=== PATIENT | female | born 1960 | race Caucasian/White ===

== ENCOUNTER 2020-11-01 21:23 | Emergency (ER) | payer OTHER ==
[~2020-11-01] VITALS: Ht 152.4 cm; Wt 129.3 kg
[2020-11-01 22:06] LABS: ABSOLUTE LYMPHOCYTES 0.7 thou/uL (0.8-5.3); ABSOLUTE MONOCYTES 0.4 thou/uL (0.0-1.2); ABSOLUTE NEUTROPHILS 3.6 thou/uL (1.6-8.1); EOSINOPHILS 0.3 %; HEMATOCRIT 38.3 % (37.0-47.0); HEMOGLOBIN 12.5 gm/dL (12.0-15.0); MCH 27.5 pg (26.0-34.0); MCHC 32.5 g/dL (28.0-37.0); MCV 84.5 fL (80.0-100.0); MPV 10.6 fl. (7.2-11.1); NUCLEATED RBCS 0 /100WBC; PLATELET COUNT* 118 thou/uL (150-400); POLYS 74.7 %; RBC 4.53 mil/uL (4.20-5.00); RDW-CV 14.9 % (10.5-14.5); WBC 4.8 thou/uL (4.0-11.0)
[2020-11-01 22:15] LABS: APTT 25.5 Seconds (25.0-31.3); INR 0.9; PROTIME 10.1 Seconds (9.20-11.50)
[2020-11-01 22:25] LABS: ALBUMIN 3.1 g/dL (3.4-5.0); CALCIUM 8.8 mg/dL (8.5-10.1); POTASSIUM 3.8 mmol/L (3.5-5.1); TOTAL BILIRUBIN 0.6 mg/dL (<0.1-1.0); TOTAL PROTEIN 6.9 g/dL (6.4-8.2)
[2020-11-01] MEDS ORDERED: AZITHROMYCIN 2250 MG PO (22:54)
[2020-11-01] MEDS ORDERED: VENTOLIN HFA 1818 GM INH (22:54)
[2020-11-01] MEDS ORDERED: DEXAMETHASONE 44 M1 PO (22:54)
[2020-11-01 23:14] VITALS: BP 124/73
--- NOTE | 2020-11-02 14:17 | EKG ---
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 : 1960 Requested By: Rohith Cardona Order Number: [id number] MD: Luiz Johnson Measurements Intervals [place] Rate: 89 P: 60 HI: 156 QRS: 15 QRSD: 89 T: 41 QT: 342 QTc: 417 Interpretive Statements Sinus rhythm Baseline wander in lead(s) V2 No previous ECG available for comparison Electronically Signed On 11-02-2020 14:17:02 [employer]TER [employer] by Luiz Johnson [email or web address] <ELECTRONICALLY SIGNED> By: Luiz Johnson MD, [facility] 11/02/20 1417 35 Luiz Johnson MD, [facility] /EPI
== END 2020-11-01 23:14 | disposition home or self-care (01) ==
LOC: M.ERS 21:23
PROVIDERS: Family Medicine
DX: J18.9 Pneumonia, unspecified organism (principal); Z20.822 Contact with and (suspected) exposure to COVID-19

== ENCOUNTER 2020-11-07 13:19 | Inpatient (IN) | payer OTHER ==
[~2020-11-07] VITALS: Ht 152.4 cm; Wt 127.9 kg
--- NOTE | ~2020-11-07 | PROC ---
[address] [address] PROCEDURE REPORT Name: HEBERT SMITH Room: [address] IN M.R.#: [id number] Admission: 11/07/20 Attend Phys: Devorah Mayorga MD Discharge: 11/11/20 Date of : 60 Report #: [id number] THIS REPORT FOR: cc: Genesis Mcknight Angela Jo RNP ~ [facility],Medical Records Staff For GI report, please see the Provation report in Perceptive 7 content. By: [id number] Records Staff [facility] /EZE
[~2020-11-07 13:19] MED LIST: AZITHROMYCIN 2250 MG PO; DEXAMETHASONE 44 M1 PO; VENTOLIN HFA 1818 GM INH
[2020-11-07 13:24] VITALS: BP 207/87
[2020-11-07] MEDS ORDERED: PEPCID20 MG PO (13:27)
[2020-11-07 13:40] LABS: URINE BILIRUBIN NEGATIVE (Negative); URINE BLOOD NEGATIVE (Negative); URINE COLOR YELLOW; URINE GLUCOSE-RANDOM NEGATIVE (Negative); URINE KETONES NEGATIVE (Negative); URINE LEUKOCYTES-REFLEX TRACE (Negative); URINE NITRITE-REFLEX NEGATIVE (Negative); URINE PROTEIN 1+ (Negative); URINE SPECIFIC GRAVITY >= 1.030 (1.005-1.030); URINE UROBILINOGEN 0.2 E.U./dl (0.2-1.0)
[2020-11-07 13:41] LABS: URINE CLARITY HAZY
[2020-11-07 13:45] LABS: BACTERIA-REFLEX 1-9 Few /HPF (None Seen); CASTS None Seen /LPF (None Seen); CRYSTALS None Seen /LPF (None Seen); MUCUS >6 Heavy strn/LPF (None Seen); SQUAMOUS 4-10 Moderate /LPF (0-3); URINE RBC None Seen /HPF (0-2); URINE WBC-REFLEX 6-15 Few /HPF (0-5)
[2020-11-07 14:07] LABS: HEMOGLOBIN 13.9 gm/dL (12.0-15.0); MCH 27.3 pg (26.0-34.0); MCHC 32.3 g/dL (28.0-37.0); MCV 84.3 fL (80.0-100.0); MPV 10.5 fl. (7.2-11.1); NUCLEATED RBCS 0 /100WBC; PLATELET COUNT* 211 thou/uL (150-400); RDW-CV 14.9 % (10.5-14.5); WBC 11.8 thou/uL (4.0-11.0)
[2020-11-07 14:10] LABS: CALCIUM 7.5 mg/dL (8.5-10.1); CREATININE 0.9 mg/dL (0.6-1.3)
[2020-11-07 14:15] LABS: ALBUMIN 3.1 g/dL (3.4-5.0); TOTAL BILIRUBIN 0.6 mg/dL (<0.1-1.0); TOTAL PROTEIN 6.5 g/dL (6.4-8.2)
[2020-11-07 14:53] LABS: AMP/METHAMP Negative (Negative); BARBITURATES Negative (Negative); BENZODIAZEPINES Negative (Negative); COCAINE Negative (Negative); METHADONE Negative (Negative); OPIATES Negative (Negative); PCP Negative (Negative); THC Negative (Negative)
[2020-11-07 15:11] LABS: ABSOLUTE LYMPHOCYTES 0.9 thou/uL (0.8-5.3); ABSOLUTE MONOCYTES 0.2 thou/uL (0.0-1.2); ABSOLUTE NEUTROPHILS 10.6 thou/uL (1.6-8.1)
[2020-11-07 15:12] LABS: PLATELET ESTIMATE ADEQUATE
--- NOTE | 2020-11-07 15:50 | EKG ---
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: [facility] : 1960 Requested By: Ines Sethi Order Number: [id number] MD: Tom Borja Measurements Intervals [place] Rate: 67 P: 71 SD: 180 QRS: 14 QRSD: 98 T: 54 QT: 397 QTc: 419 Interpretive Statements Sinus rhythm Compared to ECG 11/01/2020 21:36:23 ST segment changes less prominent Electronically Signed On 11-07-2020 15:50:07 HOME DEMONSTRATOR by Tom Borja [email or web address] <ELECTRONICALLY SIGNED> By: Tom Borja MD, [facility] 11/07/20 2770 1338 1338 Tom Borja MD, [facility] /EPI
[2020-11-07 17:57] VITALS: BP 174/75
[2020-11-07 20:00] VITALS: BP 145/77
[2020-11-08 05:08] LABS: ABSOLUTE EOSINOPHILS 0.1 thou/uL (0.0-0.7); ABSOLUTE LYMPHOCYTES 1.1 thou/uL (0.8-5.3); ABSOLUTE MONOCYTES 0.8 thou/uL (0.0-1.2); BASOPHILS 0.1 %; EOSINOPHILS 0.4 %; HEMATOCRIT 40.5 % (37.0-47.0); HEMOGLOBIN 12.8 gm/dL (12.0-15.0); LYMPHOCYTES 7.5 %; MCH 26.8 pg (26.0-34.0); MCHC 31.6 g/dL (28.0-37.0); MCV 84.7 fL (80.0-100.0); MONOCYTES 5.5 %; MPV 10.4 fl. (7.2-11.1); NUCLEATED RBCS 0 /100WBC; PLATELET COUNT* 192 thou/uL (150-400); POLYS 86.5 %; RBC 4.78 mil/uL (4.20-5.00); RDW-CV 15.2 % (10.5-14.5)
[2020-11-08 05:27] VITALS: BP 170/76
[2020-11-08 05:48] LABS: ALBUMIN 2.9 g/dL (3.4-5.0); CALCIUM 7.5 mg/dL (8.5-10.1); CREATININE 0.8 mg/dL (0.6-1.3); POTASSIUM 3.5 mmol/L (3.5-5.1); TOTAL BILIRUBIN 0.5 mg/dL (<0.1-1.0); TOTAL PROTEIN 6.2 g/dL (6.4-8.2)
[2020-11-08 08:00] VITALS: BP 179/80
[2020-11-08 12:54] VITALS: BP 178/84
[2020-11-08 20:15] VITALS: BP 143/76
[2020-11-09 04:44] VITALS: BP 153/77
[2020-11-09 07:46] LABS: ABSOLUTE EOSINOPHILS 0.1 thou/uL (0.0-0.7); EOSINOPHILS 0.6 %
[2020-11-09 07:48] LABS: ABSOLUTE BASOPHILS 0.2 thou/uL (0.0-0.2); ABSOLUTE MONOCYTES 1.4 thou/uL (0.0-1.2); ABSOLUTE NEUTROPHILS 18.4 thou/uL (1.6-8.1); HEMATOCRIT 37.3 % (37.0-47.0); LYMPHOCYTES 4.8 %; MCH 27.2 pg (26.0-34.0); MCHC 32.1 g/dL (28.0-37.0); MCV 84.8 fL (80.0-100.0); MONOCYTES 6.4 %; MPV 10.2 fl. (7.2-11.1); NUCLEATED RBCS 0 /100WBC; PLATELET COUNT* 200 thou/uL (150-400); POLYS 87.2 %; RDW-CV 15.3 % (10.5-14.5); WBC 21.1 thou/uL (4.0-11.0)
[2020-11-09 07:55] LABS: ALBUMIN 2.4 g/dL (3.4-5.0); CALCIUM 7.9 mg/dL (8.5-10.1); CREATININE 0.7 mg/dL (0.6-1.3); POTASSIUM 3.8 mmol/L (3.5-5.1); TOTAL BILIRUBIN 0.8 mg/dL (<0.1-1.0)
[2020-11-09 08:07] VITALS: BP 155/76
[2020-11-09 20:15] VITALS: BP 128/59
[2020-11-09 23:37] VITALS: BP 131/76
[2020-11-10 00:22] VITALS: BP 131/76
[2020-11-10 04:00] VITALS: BP 103/60
[2020-11-10 04:13] LABS: HEMATOCRIT 34.6 % (37.0-47.0); HEMOGLOBIN 11.2 gm/dL (12.0-15.0); MCH 27.3 pg (26.0-34.0); MCHC 32.4 g/dL (28.0-37.0); MCV 84.3 fL (80.0-100.0); MPV 10.3 fl. (7.2-11.1); RBC 4.11 mil/uL (4.20-5.00); RDW-CV 14.7 % (10.5-14.5); WBC 16.8 thou/uL (4.0-11.0)
[2020-11-10 04:35] LABS: CALCIUM 8.9 mg/dL (8.5-10.1); CREATININE 0.8 mg/dL (0.6-1.3); MAGNESIUM 2.2 mg/dL (1.8-2.4); TOTAL BILIRUBIN 0.9 mg/dL (<0.1-1.0); TOTAL PROTEIN 5.9 g/dL (6.4-8.2)
[2020-11-10 07:48] VITALS: BP 135/87
--- NOTE | 2020-11-10 18:42 | OP ---
[facility] [address] [place] [address] OPERATIVE REPORT Name: HEBERT SMITH Room: [address] IN .R.#: [id number] Admission: 11/07/20 Attend Phys: Devorah Mayorga MD Discharge: Date of : 60 Report #: [id number] THIS REPORT FOR: cc: Genesis Mcknight Angela Jo RNP ~ Gazzetta, Joshua D. DO DICTATED BY: José Koehler DO DATE OF SERVICE: 11/09/2020 PREOPERATIVE DIAGNOSES: Acute cholecystitis and transaminitis. POSTOPERATIVE DIAGNOSES: Acute cholecystitis and choledocholithiasis. PROCEDURE PERFORMED: Laparoscopic cholecystectomy with intraoperative cholangiogram. SURGEON: Elie Cook DO CO-SURGEON: José Koehler DO, PGY-4. OSTEOPATHIC MEDICINE TEACHER: KATHERINE Gutierrez. ANESTHESIA: General and regional. ESTIMATED BLOOD LOSS: 10 mL. SPECIMEN: Gallbladder. FINDINGS: Thickened gallbladder wall consistent with cholecystitis. Intraoperative cholangiogram findings of dilated common bile duct with no flow into the duodenum indicating obstruction, likely choledocholithiasis. Indication: The patient is a 60-year-old female who was admitted with abdominal pain. History of present illness, physical exam, and labarotory analysis were consistent with gallstone pancreatitis. Once her abdominal pain improved, she was consented for a laparoscopic cholecytectomy with intraoperative cholangiogram. Risks of bleeding, infection, and damage to nearby structures including bowel and biliary tree were discussed in detail. Patient voiced complete understanding and elected to proceed with surgery. DESCRIPTION OF PROCEDURE: After consent was obtained, the patient was taken to the operating room and placed in the supine position. SCDs applied to bilateral lower extremities, safety belt placed across the patient's waist. A 3 grams Ancef given for surgical prophylaxis. [place] [address] OPERATIVE REPORT Name: HEBERT SMITH Room: [address] IN [facility]#: [id number] Admission: 11/07/20 Attend Phys: Devorah Mayorga MD Discharge: Date of : 60 Report #: [id number] endotracheal anesthesia without any complications. The patient's abdomen was prepped and draped in standard sterile fashion. Bilateral TAP blocks was performed by the Anesthesia team. Timeout was performed to confirm the patient and procedure. An 11 blade scalpel was used to make an incision above the umbilicus. Electrocautery used for hemostasis and dissected down to the level of fascia. Once fascia was encountered, it was scored with electrocautery, grasped between 2 Kochers and elevated. Hemostat was used to bluntly enter the peritoneum. Two stitches of 0 Vicryl placed on either side of the fascia. A 10 mm Etelvina trocar was inserted into the abdomen. Insufflation was initiated without any complication. Intra-abdominal contents were inspected. The patient was placed in reverse Trendelenburg, rotated towards the left. Three more trocars, all 5 mm placed, 1 subxiphoid and 2 in the right upper quadrant. Gallbladder could be seen underneath the edge of the liver, it was elevated. There was a thickened wall of the gallbladder indicating acute cholecystitis. Attention was turned towards isolating the cystic artery and cystic duct after Lynne's pouch was grabbed and retracted laterally. Electrocautery was used to score the visceral peritoneum and our dissection was carried laterally. Visceral fat was then swept caudad and visceral peritoneum was scored medially as well. [place] dissector was used to circumferentially isolate the cystic artery and cystic duct. Once both structures were completely isolated and seen going up into the gallbladder, critical view of safety was obtained. The artery was very anterior and a limited view of our duct, therefore, we placed 2 Weck clips on the proximal and distal cystic of the artery. Artery was transected. The duct was then better visualized. We then placed a Lemus clamp across Lynne's pouch. Catheter was inserted into the gallbladder. Saline flushed with ease. Our fluoroscopy was brought into the field. Images were taken indicating correct position. We flushed contrast. We were able to visualize the cystic duct going down to the very dilated common bile duct with distal obstruction of the common bile duct with no flow of contrast into the duodenum. All hepatic ducts were intact and dilated. At this point, we terminated our fluoroscopy. Lemus clamp was removed along with the catheter. Due to the large size of our cystic duct, we decided to fire a 45 white load stapling Endo-ANGELA stapler across the cystic duct. Once the duct was completely transected, electrocautery was used to carefully dissect the gallbladder off the bed of the liver. The gallbladder was placed in laparoscopic EndoCatch bag. Liver bed was inspected. Hemostasis was ensured with electrocautery. Clips were inspected. There was no evidence of bile leak or bleeding. Insufflation was let down. All trocars were removed under direct visualization. Gallbladder and its contents were removed from the supraumbilical trocar site. Supraumbilical fascia was reapproximated with 1 stitch of 0 Vicryl in a eyxhyx-uo-shayq fashion. Subcutaneous tissue reapproximated with 3-0 Vicryl, all skin incisions reapproximated with 4-0 Monocryl. The gallbladder was inspected. There were [address] [address] OPERATIVE REPORT Name: HEBERT SMITH Room: [address] IN ..#: [id number] Admission: 11/07/20 Attend Phys: Devorah Mayorga MD Discharge: Date of : 60 Report #: [id number] very large stones within the gallbladder. This was sent for pathologic evaluation. Sterile skin glue was applied to all incisions. All needle, instrument, and sponge counts were correct x 2 at the end of the case. <ELECTRONICALLY SIGNED> By: Elie Cook DO 11/10/20 1842 1618 [id number] Cook DO /nt
[2020-11-10 20:30] VITALS: BP 162/75
[2020-11-11 00:07] VITALS: BP 157/80
[2020-11-11 05:13] LABS: HEMATOCRIT 37.9 % (37.0-47.0); MCH 27.2 pg (26.0-34.0); MCHC 31.8 g/dL (28.0-37.0); MCV 85.4 fL (80.0-100.0); MPV 10.9 fl. (7.2-11.1); RBC 4.43 mil/uL (4.20-5.00); WBC 13.8 thou/uL (4.0-11.0)
[2020-11-11 05:54] LABS: ALBUMIN 2.2 g/dL (3.4-5.0); CALCIUM 9.2 mg/dL (8.5-10.1); CREATININE 0.9 mg/dL (0.6-1.3); POTASSIUM 3.6 mmol/L (3.5-5.1); TOTAL BILIRUBIN 0.4 mg/dL (<0.1-1.0); TOTAL PROTEIN 6.2 g/dL (6.4-8.2)
[2020-11-11 08:15] VITALS: BP 160/77
[2020-11-11] MEDS ORDERED: NORCO5 PO (09:25)
[2020-11-11] MEDS ORDERED: OMEPRAZOLE40 MG PO (09:25)
[2020-11-11 11:10] VITALS: BP 160/77
[2020-11-11 11:23] VITALS: BP 160/77
[2020-11-11 13:33] VITALS: BP 160/77
--- NOTE | 2020-11-14 11:07 | PATH ---
[address] [address] PATHOLOGY RPT PROCEDURE Name: HEBERT SMITH Room: [address] IN ..#: [id number] Admission: 11/07/20 Date of : 60 Discharge: 11/11/20 Report #: [id number] Path Case #: [id number] [facility] Accession Number: [id number] . 01 Material submitted: . gallbladder - GALLBLADDER AND CONTENTS . 01 Clinical history: . ACUTE PANCREATITIS LAPAROSCOPIC CHOLECYSTECTOMY WITH GRAMS . 02 Diagnosis: Gallbladder and contents: - Chronic and acute erosive cholecystitis and cholelithiasis. (FATMATA:curtis; 11/11/2020) MBR 11/11/2020 [facility] Local . 02 Electronically signed: . Jassi Duggan MD, Pathologist NPI- [id number] . 01 Gross description: . Received in formalin labeled "[place], Hebert, gallbladder and contents" is an intact cholecystectomy specimen measuring 7.7 x 3.8 x 3.3 cm. The serosa is pink-red and focally hemorrhagic and the specimen is opened to reveal pink-jones focally hemorrhagic and trabeculated mucosa without polyps or masses. The average wall thickness is 0.4 cm. Multiple multifaceted calculi are present within the gallbladder, measuring in aggregate 6.6 x 2.4 x 2.1 cm and ranging from 1.4-2.8 cm in greatest dimension. Wiring Mechanic sections of the fundus and body and the cystic duct margin are submitted in A1. ([facility]; 11/10/2020) [facility] 11/10/2020 [facility] . 02 Pathologist provided ICD-10: K80.12 . 02 CPT . 604403 Specimen Comment: Report sent to Performed at: 01 [facility] [address], [place], [place] [id number] MD Partha Bangura MD Phone: [phone] Performed at: 02 [facility] [address], [place], [place] [id number] MD Jassi Duggan MD Phone: [phone]
== END 2020-11-11 12:35 | disposition home or self-care (01) | DRG 417 ==
LOC: M.ERS 13:19 → M.2W 16:12 → M.3W 16:12 → M.TBA-ER 16:12 → M.2W 18:23 → M.3W 11-08 16:44
PROVIDERS: Internal Medicine; Nurse Practitioner Family; Surgery; ADMIT Family Medicine; ATTEND Family Medicine
DX: K80.61 Calculus of gallbladder and bile duct with cholecystitis, unspecified, with obstruction (principal); K85.10 Biliary acute pancreatitis without necrosis or infection; E87.1 Hypo-osmolality and hyponatremia; Z68.43 Body mass index [BMI] 50.0-59.9, adult; E87.0 Hyperosmolality and hypernatremia; R65.10 Systemic inflammatory response syndrome (SIRS) of non-infectious origin without acute organ dysfunction; I10 Essential (primary) hypertension; E66.01 Morbid (severe) obesity due to excess calories; K29.70 Gastritis, unspecified, without bleeding; K21.00 Gastro-esophageal reflux disease with esophagitis, without bleeding; Z20.822 Contact with and (suspected) exposure to COVID-19; Z79.899 Other long term (current) drug therapy